=== PATIENT | male | born 1985 | race Caucasian/White ===

== ENCOUNTER 2022-04-04 09:57 | Outpatient (CLI) | payer OTHER, SELFPAY ==
[2022-04-04 12:50] LABS: Chloride* 107 mmol/L (96-114); Potassium* 5.1 mmol/L (3.6-5.1); Sodium* 141 mmol/L (135-149)
[2022-04-04 12:53] LABS: Blood Urea Nitrogen* 18 mg/dL (5-24); Carbon Dioxide* 28 mmol/L (20-32); Cholesterol* 165 mg/dL (90-199); Creatinine* 0.7 mg/dL (0.5-1.5); Estimated Glomerular Filt Rate 124 ml/min; Glucose* 93 mg/dL (60-115)
[2022-04-04 12:54] LABS: Calcium* 9.1 mg/dL (8.4-10.6); HDL Cholesterol* 47 mg/dL (>=40); LDL Cholesterol Calculated 85 mg/dL (<100); Triglycerides* 164 mg/dL (40-149)
== END 2022-04-04 09:58 | disposition home or self-care (01) ==
PROVIDERS: PCP Family Medicine; Visit Provider Family Medicine
DX: I10 Essential (primary) hypertension (principal); E78.5 Hyperlipidemia, unspecified; F41.9 Anxiety disorder, unspecified
CPT/HCPCS: 80048; 80061

== ENCOUNTER 2023-04-24 09:58 | Outpatient (CLI) | payer OTHER, SELFPAY | END 2023-04-24 09:59 | disposition home or self-care (01) | PROVIDERS: PCP Family Medicine; Visit Provider Family Medicine | DX: E78.2 Mixed hyperlipidemia (principal); R53.83 Other fatigue; I10 Essential (primary) hypertension | CPT/HCPCS: 80048; 80061; 84403; 84443 ==

== ENCOUNTER 2023-06-07 12:55 | Outpatient (CLI) | payer OTHER, SELFPAY | END 2023-06-07 12:56 | disposition home or self-care (01) | LOC: NFLDREF 06-10 07:20 | PROVIDERS: PCP Family Medicine; Referring Provider Family Medicine; Visit Provider Family Medicine | DX: E29.1 Testicular hypofunction (principal) | CPT/HCPCS: 84270; 84402; 84403 ==

== ENCOUNTER 2024-04-29 11:15 | Outpatient (CLI) | payer OTHER, SELFPAY | END 2024-04-29 11:16 | disposition home or self-care (01) | PROVIDERS: PCP Family Medicine; Visit Provider Family Medicine | DX: R53.83 Other fatigue (principal); I10 Essential (primary) hypertension; E78.5 Hyperlipidemia, unspecified; E29.1 Testicular hypofunction; F41.9 Anxiety disorder, unspecified | CPT/HCPCS: 80048; 80061; 84270; 84402; 84403 ==

== ENCOUNTER 2024-11-04 18:50 | Emergency (ER) | payer OTHER, SELFPAY ==
--- OUTSIDE RECORDS SUMMARY | 2024-11-04 18:53 | XMS_ITS | Patient Health Record ---
Author Organization [facility] Address [facility] [address] Care Team Providers Care Dulser Name Role Phone KENNEDI OCHOA, LADI Unavailable [phone] Panda OCHOA, Anai Unavailable [phone] Reason For Referral No Information Plan Of Treatment No Information Insurance Providers Payer Name Payer Address Payer Phone Subscriber Number Group Number Insured Name Patient Relationship to Insured Coverage Start Date Coverage End Date [address] [address] [place] [address] [id number] Samir Salgado Child - Insured has Financial Responsibility
--- OUTSIDE RECORDS SUMMARY | 2024-11-04 18:53 | XMS_ITS | Encounter Summary ---
Author Organization [place] Address [address] [place] [address] Care Team Providers Care Auxiliary Operator Name Role Phone [facility] Primary Care Provider [phone] Rodríguez Lopez MD Unavailable + [phone] Mayelin Payton PA-C Unavailable Encounter Details Date Type Department Care Team (Late st Contact Info) Description 10/24/2022 [facility] Medical Advice [facility] Sports Medicine [address] [place] [phone] Rodríguez Lopez MD [address] [place] [id number] Social History Tobacco Use Types Packs/Day Years Used Date Smoking Tobacco: Never Smokeless Tobacco: Never PHQ-2 Answer Date Recorded PHQ-2 Score 0 06/26/2022 Sex and Gender Information Value Date Recorded Sex Assigned at Not on file 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 No / Unsure 10/24/2022 2:22 PM CDT documented as of this encounter Plan of Treatment Not on file documented as of this encounter Visit Diagnoses Not on filedocumented in this encounter Care Teams Auxiliary Operator Relationship Specialty Start Date End Date [facility] [address] [place], [place] [phone] PCP - General 08/19/18 Rodríguez Lopez MD [address] [place] [address] Assigned Musculoskeletal Provider 07/14/22 05/09/24 Mayelin Payton PA-C [address] [place] [address] Assigned PCP 05/31/22 documented as of this encounter
--- OUTSIDE RECORDS SUMMARY | 2024-11-04 18:53 | XMS_ITS | Clinical Summary ---
Author Organization [place] Address [address] [place] [address] Care Team Providers Care Metallurgical Engineering Technician Name Role Phone Clinic, [facility] Primary Care Provider [phone] Mayelin Payton PA-C Unavailable Allergies Active Allergy Reactions Criticality Noted Date Comments Diltiazem Headache 05/04/2014 Medications atorvastatin (LIPITOR) 40 MG tablet Take 40 mg by mouth every evening 3 Active citalopram (CELEXA) 20 MG tablet Take 1 tablet by mouth daily at 2 pm 3 Active losartan (COZAAR) 100 MG tablet Take 1 tablet by mouth daily at 2 pm 3 Active phentermine (ADIPEX-P) 37.5 MG capsule TAKE 1 CAPSULE BY MOUTH DAILY. ADMINISTER 30 MINUTES BEFORE OR 1-2 HOURS AFTER BREAKFAST 3 Active diclofenac (VOLTAREN) 75 MG EC tabletIndicatio ns:Acute pain of right knee Take 1 tablet (75 mg) by mouth 2 times daily for 14 days 28 tablet 1 3 Active Resolved Problems Problem Noted Date Diagnosed Date Resolved Date Sprain of calcaneofibular ligament of ankle 08/27/2005 09/11/2005 Overview (11/18/2014): Problem list name updated by automated process. 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 Gender Identity Not on file Sexual Orientation Not on file Last Filed Vital Signs Vital Sign Reading Time Taken Comments Blood Pressure 150/101 10/24/2022 3:30 PM CDT Pulse 100 10/24/2022 3:30 PM CDT Temperature 36.7 C (98.1 F) 10/24/2022 3:30 PM CDT Respiratory Rate 18 10/24/2022 3:30 PM CDT Oxygen Saturation 99% 10/24/2022 3:30 PM CDT Inhaled Oxygen Concentration - - Weight 113.8 kg (250 lb 12.8 oz) 10/24/2022 3:30 PM CDT Height 175.3 cm (5' 9) 06/26/2022 12:3 8 PM CDT Body Mass Index 37.04 06/26/2022 12:38 PM CDT Plan of Treatment Health Maintenance Due Date Last Done Comments ADVANCE CARE PLANNING 1987 LIPID 1987 YEARLY PREVENTIVE VISIT 10/27/1990 HIV SCREENING 10/27/2002 HPV VACCINE (2 - Male 3-dose series) 09/15/2012 08/18/2012 DIABETES SCREENING 08/19/2021 08/19/2018, 0 08/19/2018, 08/19/2018, Additional history exists ANNUAL REVIEW OF HM ORDERS 06/27/2023 06/26/2022 PHQ-2 (once per calendar year) 2024 06/26/2022 DTAP/TDAP/TD VACCINE (8 - Td or Tdap) 09/16/2024 09/16/2014, 10/18/2006, 06/20/2000, Additional history exists COVID-19 VACCINE ( season) 2024 11/21/2021, 01/03/2021, 04/06/2020, Additional history exists INFLUENZA VACCINE (#1) 2024 , 12/01/2020, 12/01/2019, Additional history exists ZOSTER VACCINE (1 of 2) 10/27/2037 HEPATITIS B VACCINE Completed 03/21/1999, 09/19/1998, 09/19/1998, Additional history exists HEPATITIS C SCREENING Completed 08/12/2018 MENINGITIS VACCINE Aged Out No longer eligible based on patient's age to complete this topic PNEUMOCOCCAL VACCINE: PEDIATRICS (0 to 5 YEARS) AND AT-RISK PATIENTS (6 to 49 YEARS) Aged Out No longer eligible based on patient's age to complete this topic Procedures Procedure Name Priority Date/Time Associated Diagnosis Comments COMPREHENSIVE METABOLIC PANEL STAT 08/19/2018 3:28 PM CDT HEPATITIS C (HIM EXTERNAL RESULT) Routine 08/12/2018 from Last 3 Months or Most Recently Relevant to Health Maintenance Results * (ABNORMAL) Comprehensive metabolic panel (08/19/2018 3:28 PM CDT) Sodium 140 133 - 144 mmol/L 08/19/2018 4:[address] [facility] Potassium 4.0 3.4 - 5.3 mmol/L 08/19/2018 4:[address] [facility] Chloride 105 94 - 109 mmol/L 08/19/2018 4:[address] [facility] Carbon Dioxide 28 20 - 32 mmol/L 08/19/2018 4:[address] [facility] Anion Gap 7 3 - 14 mmol/L 08/19/2018 4:[address] [facility] Glucose 84 70 - 99 mg/dL 08/19/2018 4:[address] [facility] Urea Nitrogen 13 7 - 30 mg/dL 08/19/2018 4:[address] [facility] Creatinine 0.86 0.66 - 1.25 mg/dL 08/19/2018 4:[address] [facility] GFR Estimate >90 >60 mL/min/{1. 73_m2} 08/19/2018 4:[address] [facility] Comment: Non GFR Calc Starting 02/04/2018, serum creatinine based estimated GFR (eGFR) will be calculated using the Chronic Kidney Disease Epidemiology Collaboration (CKD-EPI) equation. GFR Estimate If Black >90 >60 mL/min/{1. 73_m2} 08/19/2018 4:[address] [facility] Comment: GFR Calc Starting 02/04/2018, serum creatinine based estimated GFR (eGFR) will be calculated using the Chronic Kidney Disease Epidemiology Collaboration (CKD-EPI) equation. Calcium 8.8 8.5 - 10.1 mg/dL 08/19/2018 4:07 PM CDT [facility] Bilirubin Total 0.6 0.2 - 1.3 mg/dL 08/19/2018 4:[address] [facility] Albumin 3.5 3.4 - 5.0 g/dL 08/19/2018 4:[address] [facility] Protein Total 8.3 6.8 - 8.8 g/dL 08/19/2018 4:[address] [facility] Alkaline Phosphatase 276(H) 40 - 150 U/L 08/19/2018 4:[address] [facility] ALT 450(H) 0 - 70 U/L 08/19/2018 4:[address] [facility] AST 173(H) 0 - 45 U/L 08/19/2018 4:[address] [facility] Blood specimen (specimen) 08/19/2018 3:28 PM CDT 08/19/2018 3:45 PM CDT us Jena Robles MD LAB - BLOOD ORDERABLES F inal Result [facility] [address] [place] [address], [facility] [phone] [facility] [address] [place] [address], [facility] [phone] * Hep C - HIM (08/12/2018) Hep C HIM See Scanned Document [facility] Comment:NON-REACTIVE 08/12/2018 Narrative [facility] - 08/12/2018 LAB RESULT [facility] us Provider Outside LAB - HIM EXTERNAL RESULT Final Result [facility] [address] [place] [address] from Last 3 Months or Most Recently Relevant to Health Maintenance Insurance [facility] Care Teams Metallurgical Engineering Technician Relationship Specialty Start Date End Date [address] [address] PCP - General 08/19/18 Mayelin Payton PA-C [address] [place], [place] [id number] Assigned PCP 05/31/22
--- OUTSIDE RECORDS SUMMARY | 2024-11-04 18:53 | XMS_ITS | Clinical Summary ---
Author Organization [facility] Address [address] [place] [address] Care Team Providers Care Strawberry Grower Name Role Phone Clinic, No Pcp Or Primary Care Provider Unavaila ble Allergies Active Allergy Reactions Criticality Noted Date Comments Diltiazem Headache 05/04/2014 Medications medication order composer Vit D3 4000 IU daily 0 5 Active citalopram (CELEXA) 40 mg tablet Take 1 tablet by mouth once daily. 90 tablet 3 5 Active traZODone (DESYREL) 50 mg tabletIndication s:Insomnia Take 1 tablet by mouth at bedtime if needed for Sleep. 90 tablet 3 5 Active albuterol HFA (PRO-AIR,VENTOLI N,PROVENTIL) 90 mcg/actuation inhaler Inhale 2 Puffs by mouth every 4 hours if needed. 1 Inhaler prn 5 Active metoprolol succinate (TOPROL XL) 50 mg sustained-releas e tablet Take 1 tablet by mouth once daily. 30 tablet 2 5 Active sod. hyaluronate 0.001% in BSS ophthalmic solution (HEALON)(LARS SPECIAL MIXTURE) 1 drop in each eye every 2 hrs while awake, alternating on the hour with Pred sod. hyaluronate. Discard 15 days after opening. Refrigerate. 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 hyaluronate- prednisolone (0.001-0.25%)in BSS(PRED-HEALON) (LARS AMB MIXTURE) 1 drop in each eye every 2 hrs while awake, alternating on the hour with sodium hyaluronate. Discard 15 days after opening. Refrigerate. 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 6 Active Active Problems Problem Noted Date Diagnosed Date Depression 03/22/2014 Insomnia 03/22/2014 Hypertension 03/22/2014 Vitamin D deficiency 09/25/2012 Hypercholesteremia 09/25/2012 Shoulder impingement 05/23/2012 Seasonal allergies Health Maintenance Overview (08/06/2008): Last PE September, Immunizations Immunization Administration Dates Next Due Hepatitis A (Peds) 07/27/2003,11/10/2001 Hepatitis B (Peds) 03/21/1999,09/19/1998, 999 Human Papilloma Virus Vaccine 08/18/2012 MMR 06/09/1998,12/22/1989 Oral Polio Vaccine 11/18/1992,05/03/1989, 989,01/03/1988 Tdap 10/18/2006 Tuberculin (PPD) 02/20/2013 Family History Medical History Relation Name Comments Psychiatric illness Father depressi on Cancer Maternal Grandmother cervica l Psychiatric illness Maternal Grandmother anxiety Heart Disease Mother murmur Psychiatric illness Mother anxiety Diabetes Paternal Grandfather Psychiatric illness Sister anxiety Cancer-colon No Family History Cancer-prostate No Family History Stroke No Family History Relation Name Status Comments Father Maternal Grandmother Mother Paternal Grandfather Sister Social History Tobacco Use Types Packs/Day Years Used Date Smoking Tobacco: Never Smokeless Tobacco: Never Alcohol Use Standard Drinks/Week Comments Yes 5 (1 standard drink = 0.6 oz pur e alcohol) Sex and Gender Information Value Date Recorded Sex Assigned at Not on file 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 Gender Identity Not on file Sexual Orientation Not on file Occupation Industry Job Start Date Job End Date student Not on file Not on file Not on file Obstetrics History Last Filed Vital Signs Vital Sign Reading Time Taken Comments Blood Pressure 150/92 06/14/2014 9:47 AM CDT Pulse 67 06/14/2014 9:47 AM CDT Temperature 37.1 C (98.7 F) 06/14/2014 9:47 AM CDT Respiratory Rate 16 06/14/2014 9:47 AM CDT Oxygen Saturation 97% 06/14/2014 9:47 AM CDT Inhaled Oxygen Concentration - - Weight 119.2 kg (262 lb 12.8 oz) 06/14/2014 9:47 AM CDT Height 175.9 cm (5' 9.25) 08/18/2012 1:09 PM CD T Body Mass Index 38.53 08/18/2012 1:09 PM CDT Plan of Treatment Health Maintenance Due Date Last Done Comments Depression screening for age 12+ 1999 HIV for age 15-65 10/27/2002 BMI (ht and wt on same day) for age 18+ 10/27/2005 Hepatitis C screening for ag e 18-79 10/27/2005 HPV series for age 9-45 (2 - Male 3-dose series) 09/15/2012 08/18/2012 Tetanus booster 10/18/2016 10/18/2006 Lipids for age 35-44 10/27/2022 08/18/2012, 08/19/2008 COVID-19 vaccine series ( season) 2024 Influenza Vaccine (#1) 2024 RSV vaccine for adults or (1 - 1-dose 75+ series) 10/27/2062 Hepatitis B series for 19+ Completed 03/21, 09/19/1998, 06/09/1998 Pneumococcal series for age 6-49 Aged Out No longer eligible b ased on patient's age to complete this topic Procedures Procedure Name Priority Date/Time Associated Diagnosis Comments LIPID PANEL W REFLEX MEASURED LDL Routine 08/18/2012 1:59 PM CDT Health maintenance examination from Last 3 Months or Most Recently Relevant to Health Maintenance Results * (ABNORMAL) LIPID PANEL W REFLEX MEASURED LDL (08/18/2012 1:59 PM CDT) CHOLESTEROL,TOTA L 213(H) 100 - 199 mg/dL [facility] TRIGLYCERIDES 97 <150 mg/dL [facility] HDL CHOLESTEROL 44 >40 mg/dL [facility] CHOL/HDL RATIO 4.84(H) <4.50 [facility] NON-HDL CHOLESTEROL 169 Undefined mg/dL [facility] LDL CHOLESTEROL 150(H) <131 mg/dL [facility] MIR[facility] PATIENT STATUS Fasting ABBOT T [facility] Blood specimen (specimen) BLOOD SPECIMEN / Unknown 08/18/2012 1:59 PM CDT 08/18/2012 1:52 PM CDT us Jeovany Pineda MD CHEMISTRY Final Result [facility] [place]NAL ZIP [address] [place] [address] from Last 3 Months or Most Recently Relevant to Health Maintenance Insurance [facility] Care Teams Strawberry Grower Relationship Specialty Start Date End Date Clinic, No Pcp Or . PCP - General 08/30/23
--- OUTSIDE RECORDS SUMMARY | 2024-11-04 18:53 | XMS_ITS | Encounter Summary ---
Author Organization [place] Address [address] [place] [address] Care Team Providers Care Gusset Maker Name Role Phone [facility] Primary Care Provider Rodríguez Lopez MD Unavailable + [phone] Mayelin Payton PA-C Unavailable Encounter Details Date Type Department Care Team (Late st Contact Info) Description 10/10/2022 [place] Medical Advice [facility] Sports Medicine [address] [place] [phone] Rodríguez Lopez MD [address] [place] [address] Social History Tobacco Use Types Packs/Day Years Used Date Smoking Tobacco: Never Smokeless Tobacco: Never PHQ-2 Answer Date Recorded PHQ-2 Score 0 06/26/2022 Sex and Gender Information Value Date Recorded Sex Assigned at Not on file 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
--- OUTSIDE RECORDS SUMMARY | 2024-11-04 18:53 | XMS_ITS | Encounter Summary ---
Author Organization [place] Address [address] [place] [address] Care Team Providers Care Science Job Titles Name Role Phone [facility] Primary Care Provider Rodríguez Lopez MD Unavailable + [phone] Mayelin Payton PA-C Unavailable Encounter Details Date Type Department Care Team (Late st Contact Info) Description 09/28/2022 [facility] Medical Advice [facility] Sports Medicine [address] [place] [phone] Rodríguez Lopez MD [address] [place] [address] Social History Tobacco Use Types Packs/Day Years Used Date Smoking Tobacco: Never Smokeless Tobacco: Never PHQ-2 Answer Date Recorded PHQ-2 Score 0 06/26/2022 Sex and Gender Information Value Date Recorded Sex Assigned at Not on file 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 Gender Identity Not on file Sexual Orientation Not on file documented as of this encounter Plan of Treatment Not on file documented as of this encounter Visit Diagnoses Not on filedocumented in this encounter Care Teams Science Job Titles Relationship Specialty Start Date End Date [facility] [address] [place], [place] [phone] PCP - General 08/19/18 Rodríguez Lopez MD [address] [place] [address] Assigned Musculoskeletal Provider 07/14/22 05/09/24 Mayelin Payton PA-C [address] [place] [address] Assigned PCP 05/31/22 documented as of this encounter
[2024-11-04 19:07] VITALS: BP 149/87; PULSE 96; RESP 16; TEMP 36.8; O2SAT 98; BMI 40.8
--- NOTE | 2024-11-04 19:48 | ED_ITS ---
HPI - General Adult General Chief complaint: Arrhythmia/Palpitations Stated complaint: Racing heart, dizzy, headaches, winded easy, sob Time Seen by Provider: 11/04/24 19:08 History of Present Illness HPI narrative: This 39-year-old male comes in reporting lightheadedness episodes and increased heart rate. 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 He states that he did have some intermittent low anterior chest pain on the left side today. He does take medicine for blood pressure and cholesterol but otherwise does not have any other cardiac risk factors. Related Data Home Medications ?Medication ?Instructions ?Recorded ?Confirmed tizanidine 2 mg capsule 2 - 4 mg PO Q8H PRN 03/20/22 04/29/24 Previous Rx's ?Medication ?Instructions ?Recorded scopolamine base 1 mg over 3 days 1 patch transdermal Q3D PRN motion 04/09/22 transdermal patch sickness #4 ea clonazepam 1 mg tablet 1 mg PO BID PRN anxiety #20 tabs 04/05/23 atorvastatin 40 mg tablet 40 mg PO QPM #90 tabs chlorthalidone 25 mg tablet 25 mg PO QDAY #90 tabs 02/11 citalopram 20 mg tablet 20 mg PO QDAY #90 tabs 04/29 losartan 100 mg tablet 100 mg PO QDAY #90 tabs 04/18 04/14 testosterone cypionate 200 mg/mL 250 mg (1.25 mL) IM Q 10D #10 mL 05/05/24 intramuscular oil (Depo-Testosterone) dextroamphetamine-amphetamine 10 10 mg PO QDAY #30 tab s 09/11/24 mg tablet dextroamphetamine-amphetamine ER 20 mg PO QAM #30 caps 10/12/24 20 mg 24hr capsule,extend release Allergies Allergy/AdvReac Type Severity Reaction Status Date / Time No Known Drug Allergies Allergy Verified 11/04/24 19:05 Review of Systems Status of ROS: Reports: 10 or more systems reviewed and unremarkable except as noted in History and below Narrative: Constitutional: No fevers, no weight gain or loss. Eyes: No discharge. No vision changes. HENT: No congestion, no sore throat, no ear pain. Cardiovascular: No palpitations. Respiratory: No shortness of breath, no wheezes, no cough. Gastrointestinal: No abdominal pain, no vomiting, no diarrhea. Genitourinary: No dysuria, no hematuria. Musculoskeletal: Normal range of motion. Skin: No rashes, no pruritis. Neurological: No weakness, sensory change, speech change. Lightheadedness episodes as described above. Endo/Heme/Allergies: No bruising or bleeding. No polydipsia. Pysch: no suicidality, no anxiety, no insomnia. All other systems reviewed and are negative. [facility] Medical History ADD (attention deficit disorder) ?F98.8 - Other specified behavioral and emotional disorders with onset usually occurring in childhood and adolescence (ICD-10) Hypogonadism in male ?E29.1 - Testicular hypofunction (ICD-10) Fatigue ?R53.83 - Other fatigue (ICD-10) Hypertension ?I10 - Essential (primary) hypertension (ICD-10) Hyperlipidemia ?E78.5 - Hyperlipidemia, unspecified (ICD-10) Anxiety ?F41.9 - Anxiety disorder, unspecified (ICD-10) Seasonal allergies ?J30.2 - Other seasonal allergic rhinitis (ICD-10) Tear of meniscus of right knee ?S83.206A - Unspecified tear of unspecified meniscus, current injury, right knee, initial encounter (ICD-10) Steatosis of liver ?K76.0 - Fatty (change of) liver, not elsewhere classified (ICD-10) Rotator cuff arthropathy of right shoulder ?M12.811 - Other specific arthropathies, not elsewhere classified, right shoulder (ICD-10) Radicular pain of right upper extremity ?M79.2 - Neuralgia and neuritis, unspecified (ICD-10) Surgical History Status post appendectomy ?Z90.49 - Acquired absence of other specified parts of digestive tract (ICD- 10) Status post adenoidectomy ?Z90.89 - Acquired absence of other organs (ICD-10) Family History Other Diabetes Social History (Updated 04/29/24 @ 13:35 by Vale Wagoner ~ [facility]) What is your current living situation?: I presently have a place to live Problems where you live: no known problems In the past 12 months, utilities in danger of being shut off: no In past 12 months, lack of transportation kept you from medical appts, meetings, work, or getting things needed for daily living: no In the past 12 mos, have been you worried that your food would run out before you had money to buy more?: never true In the past 12 mos, the food you bought just didn't last and you didn't have money to buy more?: never true Smoking Status: Never smoker Second hand tobacco smoke exposure: No How often do you have a drink containing alcohol: never AUDIT-C Alcohol total score: 0 Non-prescribed substance use: denies use How often does anyone, including family, friends and others, physically hurt you : never How often does anyone, including family, friends and others, insult or talk down to you: never How often does anyone, including family, friends and others, threaten you with harm: never How often does anyone, including family, friends and others, scream or curse at you: never Exam Narrative: Exam Narrative: Constitutional: Well-developed, well-nourished, no acute distress. HEENT: Normocephalic, atraumatic. Neck: Normal range of motion. Nontender. Supple. Heart: Regular. No murmurs. Normal rate. Intact distal pulses. Lungs: Clear to auscultation. No chest discomfort. No wheezes, rhonchi, or rales. Abdomen: Normal bowel sounds. Nontender. No rebound tenderness. Genitalia: Deferred. Back: No midline tenderness. Normal range of motion. Extremities: Normal range of motion. No injury. Skin: Intact. No rash. Warm. No erythema or pallor. Neurologic: No altered sensation. No weakness. Alert and oriented. Psychiatric: No suicidality. No anxiety or depression. No insomnia. Nursing notes and vitals signs are reviewed. Const: Vital Signs, click to edit/add: Vital Signs - 24 hr 11/04/24 19:07 11/04/24 19:49 Temperature 98.2 F Pulse Rate [Pulse Oximeter] 96 Respiratory Rate 16 Blood Pressure [Le ft Upper Arm] 149/87 H Pulse Oximetry 98 98 Oxygen Delivery Me thod Room Air Course Vital Signs Vital signs: Initial Vital Signs Respiratory Effort Normal, Spontaneous, Non-Labored 11/04/24 19:05 Respiratory Depth Normal 11/04/24 19:05 Respiratory Pattern Normal 11/04/24 19:05 Vital Signs Temperature 98.2 F 11/04/24 19:07 Pulse Rate 96 11/04/24 19:07 Respiratory Rate 16 11/04/24 19:07 Blood Pressure 149/87 H 11/04/24 19:07 Pulse Oximetry 98 11/04/24 19:07 Oxygen Delivery Method Room Air 11/04/24 19:07 Temperature 98.2 F 11/04/24 19:07 Pulse Rate 96 11/04/24 19:07 Respiratory Rate 16 11/04/24 19:07 Blood Pressure 149/87 H 11/04/24 19:07 Pulse Oximetry 98 11/04/24 19:49 Oxygen Delivery Method Room Air 11/04/24 19:07 Medical Decision Making MDM Narrative Medical decision making narrative: This patient comes in reporting episodes of lightheadedness and diaphoresis with increased heart rate. He is undergoing very heavy physical exercise as he is in the strong [employer] competition. Additionally he is taking 2 antihypertensive medications. EKG and lab results here returned with reassuring findings. I did have discussion with him about proper rehydration with electrolytes. Additionally 1 of the nurses working here happened to be in a strong man competition previously and was able to give some 1st and empathetic information in this regard. 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 He is encouraged to follow-up with his primary physician to review his medications. Lab Data Labs: Lab Results 11/04/24 11/04/24 11/04/24 Range/Units 18:57 19:48 19:55 WBC 11.18 H (4.50-11.00) K/uL RBC 5.55 (4.30-5.90) m/uL Hgb 15.8 (13.5-17.5) gm/dL Hct 46.5 (37.0-53.0) % MCV 84 (80-100) fL MCH 29 (26-34) pg MCHC 34 (32-36) gm/dL RDW Coeff of Purnima 12.5 (11.5-15.5) % Plt Count 263 (140-440) K/uL Neut % (Auto) 63.0 (42.0-72.0) % Lymph % (Auto) 25.8 (20-44) % Emmet % (Auto) 9.2 (0.0-11.0) % Eos % (Auto) 1.7 (0.0-7.0) % Baso % (Auto) 0.2 (0.0-3.0) % Neut # (Auto) 7.00 (1.7-7.0) K/uL Lymph # (Auto) 2.90 (0.90-2.90) K/uL Emmet # (Auto) 1.00 H (0.00-0.90) K/UL Eos # (Auto) 0.20 (0.00-0.50) K/uL Baso # (Auto) 0.00 (0.00-0.30) K/uL Abs Immat Gran (auto) 0.00 (0.00-0.30) K/uL Imm/Tot Granulo (auto) 0.1 % Sodium 137 (135-149) mmol/L Potassium 3.4 L (3.6-5.1) mmol/L Chloride 98 (96-114) mmol/L Carbon Dioxide 31 (20-32) mmol/L Anion Gap 8 (7-15) mEq/L BUN 19 (5-24) mg/dL Creatinine 1.1 (0.5-1.5) mg/dL Estimated Creat Clear 91.95 Estimated GFR 89 ml/min Glucose 106 (60-115) mg/dL Calcium 8.9 (8.4-10.6) mg/dL SARS-CoV-2 (PCR) Negative SARS-CoV-2 (Negative) Influenza Type A (PCR) Negative PCR FLU A (Negative) Influenza Type B (PCR) Negative PCR FLU B (Negative) POC Troponin I 0.00 L (0.01-0.04) ng/ml ECG Data Attestation: I personally reviewed and interpreted this ECG as follows: Interpretation: Normal sinus rhythm. Rate is 95 beats per minute. There are no ST or T-wave abnormalities. Discharge Plan Discharge Clinical Impression: Episodic lightheadedness Patient Disposition: Home, Self-Care Condition: Stable Additional Instructions: Take plenty of fluids that are electrolyte balanced. Record blood pressure and review blood pressure medications with her primary physician. Follow up with MD otherwise as needed or return if worsening. Prescriptions: No Action atorvastatin 40 mg tablet 40 mg PO QPM Qty: 90 3RF chlorthalidone 25 mg tablet 25 mg PO QDAY Qty: 90 3RF citalopram 20 mg tablet 20 mg PO QDAY Qty: 90 3RF losartan 100 mg tablet 100 mg PO QDAY Qty: 90 3RF tizanidine 2 mg capsule 2 - 4 mg PO Q8H PRN scopolamine base 1 mg over 3 days patch 3 day 1 patch transdermal Q3D PRN (Reason: motion sickness) Qty: 4 0RF clonazepam 1 mg tablet 1 mg PO BID PRN (Reason: anxiety) Qty: 20 2RF testosterone cypionate [Depo-Testosterone] 200 mg/mL oil 250 mg IM Q10D Qty: 10 2RF dextroamphetamine-amphetamine 10 mg tablet 10 mg PO QDAY Qty: 30 0RF Rx Instructions: Take at noon as needed dextroamphetamine-amphetamine 20 mg capsule,extended release 24hr 20 mg PO QAM Qty: 30 0RF Follow Up/Referrals: German Londono MD [Primary Care Provider, Family Practice] Stand Alone Forms: [facility] Info Instructions
[2024-11-04 19:49] VITALS: O2SAT 98
[2024-11-04 19:56] LABS: PCR FLU A Negative PCR FLU A (Negative); PCR FLU B Negative PCR FLU B (Negative); SARS PCR* Negative SARS-CoV-2 (Negative)
[2024-11-04 20:07] LABS: Hematocrit* 46.5 % (37.0-53.0); Hemoglobin* 15.8 gm/dL (13.5-17.5); Immature Granulocytes Pct Auto 0.1 %; Mean Corpuscular HGB Conc 34 gm/dL (32-36); Mean Corpuscular Hemoglobin 29 pg (26-34); Mean Corpuscular Volume 84 fL (80-100); RDW Coefficient of Variation % 12.5 % (11.5-15.5); Red Blood Count* 5.55 m/uL (4.30-5.90); White Blood Count* 11.18 K/uL (4.50-11.00)
[2024-11-04 20:08] LABS: Immature Granulocytes Abs Auto 0.00 K/uL (0.00-0.30); Lymphocytes Absolute Auto 2.90 K/uL (0.90-2.90); Slide Review Reflex No
[2024-11-04 20:13] LABS: Troponin, Point-of-Care* 0.00 ng/ml (0.01-0.04)
[2024-11-04 20:30] LABS: Chloride* 98 mmol/L (96-114); Potassium* 3.4 mmol/L (3.6-5.1); Sodium* 137 mmol/L (135-149)
[2024-11-04 20:33] LABS: Blood Urea Nitrogen* 19 mg/dL (5-24); Creatinine* 1.1 mg/dL (0.5-1.5); Est. Creatinine Clearance* 91.95; Estimated Glomerular Filt Rate 89 ml/min
[2024-11-04 20:34] LABS: Anion Gap 8 mEq/L (7-15); Calcium* 8.9 mg/dL (8.4-10.6); Carbon Dioxide* 31 mmol/L (20-32); Glucose* 106 mg/dL (60-115)
[2024-11-04 20:53] VITALS: BP 139/89; PULSE 86; RESP 16; TEMP 36.7; O2SAT 98
[2024-11-04 20:56] VITALS: BP 139/89; PULSE 86; RESP 16; TEMP 36.7
== END 2024-11-04 20:56 | disposition home or self-care (01) ==
PROVIDERS: Emergency Provider Emergency Medicine Emergency Medical Services; PCP Family Medicine
DX: R42 Dizziness and giddiness (principal)
CPT/HCPCS: 36415; 80048; 84484; 85025; 87631; 93005; 94761; 99284